=== PATIENT | female | born 1930 | race Caucasian/White ===

== ENCOUNTER 2016-09-13 20:54 | Emergency (ER) | payer OTHER ==
[~2016-09-13] VITALS: Ht 160 cm; Wt 56.3 kg
[2016-09-13] MEDS ORDERED: METHYCLOTHIAZIDE5 MG PO (22:06)
[2016-09-13] MEDS ORDERED: ZOCOR20 MG PO (22:06)
[2016-09-13] MEDS ORDERED: VASOTEC10 MG PO (22:06)
[2016-09-13] MEDS ORDERED: XALATAN2.5 ML BOTH EYES (22:08)
[2016-09-13] MEDS ORDERED: ILEVRO1.7 ML BOTH EYES (22:08)
[2016-09-13] MEDS ORDERED: PRED FORTE100 DROP/5 BOTH EYES (22:09)
[2016-09-13] MEDS ORDERED: ASPIR 8181 M1 PO (22:11)
[2016-09-13 22:49] LABS: HEMATOCRIT 34.1 % (36.0-46.0); MCH 31.7 PG (29.0-34.0); MCHC 34.9 G/DL (30.0-36.0); MCV 90.9 FL (83-99); MEAN PLAT.VOLUME 11.4 uM^3 (9.5-12.4); PLATELET COUNT 140 K/uL (156-360); RBC DIS.WIDTH-CV 12.7 % (11.8-14.6); RBC DIS.WIDTH-SD 40.6 % (39-53); RED BLOOD COUNT 3.75 M/uL (3.80-5.20); WHITE BLOOD COUNT 5.9 K/uL (4.1-10.2)
[2016-09-13 23:00] LABS: CHLORIDE 105 mEq/L (99-109); POTASSIUM 4.7 mEq/L (3.7-5.4); SODIUM 140 mEq/L (136-147)
[2016-09-13 23:02] LABS: GLUCOSE 133 mg/dL (70-99)
[2016-09-13 23:03] LABS: ANION GAP 14 MEQ/L (2-14)
[2016-09-13 23:04] LABS: TOTAL BILIRUBIN 0.7 mg/dL (0.0-1.0)
[2016-09-13 23:05] LABS: ALKALINE PHOSPHATASE 72 IU/L (3-129)
[2016-09-13 23:06] LABS: GFR ESTIMATE (CALCULATED) 24 mL/min/
[2016-09-13 23:07] LABS: UREA NITROGEN (BUN) 37 mg/dL (9-23)
[2016-09-13 23:14] LABS: TROP-I INTERPRETATION NEGATIVE; TROPONIN-I 0.05 ng/mL (0.0-0.30)
[2016-09-14 00:04] LABS: ADD MIUA? YES; BILIRUBIN NEGATIVE; BLOOD NEGATIVE; COLOR YELLOW ((YELLOW)); GLUCOSE (STRIP) NEGATIVE; KETONES 5; LEUKOCYTES TRACE; NITRITE NEGATIVE; PROTEIN (STRIP) 100; SPECIFIC GRAVITY 1.014 (1.000-1.030); UROBILINOGEN 0.2 MG/DL (0.2-1.0)
[2016-09-14 00:09] LABS: BACTERIA NONE SEEN /HPF; EPITHELIAL CELLS NONE SEEN /HPF; HYALINE CASTS 0-5 /LPF; MUCUS TRACE /LPF; RED BLOOD CELLS 0-5 /HPF (0-5); UCUL ADDED? NO; WHITE BLOOD CELLS 0-5 /HPF (0-5)
[2016-09-14] MEDS ORDERED: ZOFRAN4 MG PO (00:30)
[2016-09-14] MEDS ORDERED: ZITHROMAX Z-PA250 MG PO (00:30)
[2016-09-14 01:00] VITALS: BP 155/51
== END 2016-09-14 01:01 | disposition home or self-care (01) ==
LOC: EME 20:54
PROVIDERS: Emergency Medicine
DX: J20.9 Acute bronchitis, unspecified (principal); E86.0 Dehydration; W07.XXXA Fall from chair, initial encounter; E78.5 Hyperlipidemia, unspecified; I10 Essential (primary) hypertension
CPT/HCPCS: 71020; 80053; 81003; 83605; 84484; 85027; 87040; 94640; 99281; 99285; J7030